=== PATIENT | male | born 1970 | race African-American/Black ===

== ENCOUNTER 2016-07-21 21:00 | Emergency (ER) | payer MEDICAID ==
[2016-07-21] MEDS ORDERED: OPTIRAY 350 100 ML VIAL HMH IV ONE (21:01)
[2016-07-21] MEDS ORDERED: MORPHINE 4 MG/ML SYR ONE (21:43)
[2016-07-21] MEDS ORDERED: ONDANSETRON 4 MG VIAL ONE (21:43)
[2016-07-22] MEDS ORDERED: KETOROLAC 30 MG/ML VIAL ONE (00:26)
== END 2016-07-22 02:49 | disposition home or self-care (01) ==
LOC: ER 21:00
DX: N20.1 Calculus of ureter (principal)
CPT/HCPCS: 74177; 80053; 81001; 83690; 85025; 96374; 96375